=== PATIENT | male | born 1980 | race Hispanic/Latino ===

== ENCOUNTER 2020-10-23 05:58 | Emergency (ER) | payer OTHER ==
[~2020-10-23] VITALS: Ht 175.3 cm; Wt 158.8 kg
[~2020-10-23 05:58] MED LIST: CEFDINIR300 MG PO; ONDANSETRON ODT8 MG PO
[2020-10-23] MEDS ORDERED: EPINEPHRINE 0.3 MG/0.3 ML PEN.INJCTR SC STA (06:16)
[2020-10-23] MEDS ORDERED: FAMOTIDINE 20 MG/2 ML VIAL IV STA (06:16)
[2020-10-23] MEDS ORDERED: METHYLPREDNISOLONE SOD SUCC 125 MG/2ML VIAL ONE (06:26)
[2020-10-23] MEDS ORDERED: FAMOTIDINE 20 MG/2 ML VIAL IV ONE (06:26)
[2020-10-23] MEDS ORDERED: EPINEPHRINE HCL 1:1000 1ML 1 MG/ML AMP ONE (06:26)
[2020-10-23] MEDS ORDERED: SODIUM CHLORIDE 0.9% 250ML 250 ML ONE (06:26)
[2020-10-23] MEDS ORDERED: DIPHENHYDRAMINE HCL INJ 50 MG/ML VIAL ONE (06:26)
[2020-10-23] MEDS ORDERED: METHYLPREDNISOLONE SOD SUCC 125 MG/2ML VIAL IV ONE (06:30)
[2020-10-23] MEDS ORDERED: DIPHENHYDRAMINE HCL INJ 50 MG/ML VIAL IV ONE (06:30)
== END 2020-10-23 07:02 | disposition home or self-care (01) ==
LOC: FSED 06:17
DX: T78.3XXA Angioneurotic edema, initial encounter (principal); T50.905A Adverse effect of unspecified drugs, medicaments and biological substances, initial encounter
CPT/HCPCS: 99283; J0171; J1200; J2930; J7050

== ENCOUNTER 2022-04-25 18:58 | Emergency (ER) | payer OTHER ==
[~2022-04-25] VITALS: Ht 175.3 cm; Wt 158.8 kg
[2022-04-25] MEDS ORDERED: CLEOCIN HCL300 MG PO (19:06)
[2022-04-25] MEDS ORDERED: IBUPROFEN800 MG PO (19:08)
== END 2022-04-25 19:20 | disposition home or self-care (01) ==
LOC: ER 19:04
DX: K04.7 Periapical abscess without sinus (principal); E11.9 Type 2 diabetes mellitus without complications
CPT/HCPCS: 99283